=== PATIENT | female | born 1955 | race African-American/Black ===

== ENCOUNTER 2023-03-26 08:47 | Emergency (ER) | payer OTHER ==
[~2023-03-26] VITALS: Ht 149.9 cm; Wt 58.0 kg
[2023-03-26 08:57] VITALS: O2SAT 100
[2023-03-26] MEDS ORDERED: OCUFLX LEFTEYE (09:33)
[2023-03-26 09:44] VITALS: BP 134/87; PULSE 81; RESP 18; TEMP 97.9
== END 2023-03-26 09:46 | disposition home or self-care (01) ==
LOC: ER 08:58
DX: H10.9 Unspecified conjunctivitis (principal); E11.9 Type 2 diabetes mellitus without complications; E78.00 Pure hypercholesterolemia, unspecified
CPT/HCPCS: 99281; 99283

== ENCOUNTER 2024-02-20 08:31 | Emergency (ER) | payer MEDICAID, MEDICARE, OTHER ==
[~2024-02-20] VITALS: Ht 160 cm; Wt 61.0 kg
[~2024-02-20 08:31] MED LIST: OCUFLX LEFTEYE
[2024-02-20 08:37] VITALS: O2SAT 100
[2024-02-20] MEDS ORDERED: FLUORESCEIN SODIUM 1MG/STRIP BOTHEYE ONE (09:15)
[2024-02-20] MEDS ORDERED: TETRACAINE 0.5% OPHTH DROPS 4ML BOTHEYE ONE (09:15)
[2024-02-20] MEDS ORDERED: PILOCARPINE HCL 2% OPHTH DROPS 15ML RIGHTEYE SCH ×2 (09:30→11:15)
[2024-02-20] MEDS: BRIMONIDINE 0.2% OPHTH DROPS 5ML RIGHTEYE ONE (09:30)
[2024-02-20] MEDS: ACETAZOLAMIDE 500MG ER CAPSULE PO ONE (09:30)
[2024-02-20] MEDS: TIMOLOL MALEATE 0.5% OPHTH DROPS 5ML RIGHTEYE SCH (09:30)
[2024-02-20 10:08] LABS: BASOPHILS % 1.3 % (0.0-2.0); EOSINOPHILS % 1.1 % (0.0-5.0); HEMOGLOBIN. 11.6 g/dL (12.0-16.0); LYMPHOCYTES % 37.4 % (20.0-50.0); MEAN CORPUSCULAR HEMOGLOBIN 29.1 pg (28.0-32.0); MEAN CORPUSCULAR HGB CONC 33.2 g/dL (31.0-37.0); MEAN CORPUSCULAR VOLUME 87.6 fL (81.0-99.0); MEAN PLATELET VOLUME 8.5 fl (7.4-10.4); MONOCYTES % 11.1 % (2.0-8.0); NEUTROPHILS % 49.1 % (40.0-76.0); PLATELET 344 x1000/uL (130-400); RED CELL DISTRIBUTION WIDTH 14.2 % (11.6-14.6); WHITE BLOOD COUNT 5.9 x1000/uL (4.5-11.0)
[2024-02-20 10:14] LABS: POTASSIUM 4.2 mEq/L (3.5-5.1)
[2024-02-20 10:16] LABS: CALCIUM 9.9 mg/dL (8.7-10.4)
[2024-02-20 10:20] LABS: CREATININE 1.8 mg/dL (0.6-1.0)
[2024-02-20 10:56] LABS: PROTHROMBIN TIME 10.7 sec (9.6-11.0)
[2024-02-20] MEDS: HYDRALAZINE 20MG/ML VIAL IV ONE ×2 (11:08→13:59)
[2024-02-20] MEDS ORDERED: TIMOLOL MALEATE 0.5% OPHTH DROPS 5ML RIGHTEYE SCH (11:30)
[2024-02-20] MEDS ORDERED: DORZOLAM/TIMOLOL 2.23/0.68% OPHTH DROPS 10ML RIGHTEYE SCH (12:00)
[2024-02-20] MEDS: MORPHINE SULFATE 2 MG/ML CPJ (NOT FOR IM USE) IV ONE (12:13)
[2024-02-20 13:59] VITALS: BP 166/72; PULSE 62; RESP 14; TEMP 98.6
== END 2024-02-20 14:28 | disposition home or self-care (01) ==
LOC: ER 08:31
DX: H40.20X0 Unspecified primary angle-closure glaucoma, stage unspecified (principal); E11.9 Type 2 diabetes mellitus without complications; E78.00 Pure hypercholesterolemia, unspecified; I10 Essential (primary) hypertension; Z86.73 Personal history of transient ischemic attack (TIA), and cerebral infarction without residual deficits
CPT/HCPCS: 99284; 96374; 96375; 80048; 85025; 85610; 36415; J0360; J2270